=== PATIENT | male | born 1955 | race Caucasian/White ===

== ENCOUNTER 2016-08-16 18:25 | Inpatient (IN) | payer MEDICAID ==
[~2016-08-16 18:25] MED LIST: ALLERCLEAR10 MG PO; ANTIVERT25 MG PO; ATIVAN1 M1 PO; B-1100 MG PO; CAMPRAL333 MG PO; CATAFLAM50 MG; CLARITIN10 MG PO; DEPADE50 MG PO; DEPAKOTE D250 MG/TA1 PO; DEPAKOTE D250 MG/TAB PO; DEPAKOTE D500 MG/TA1 PO; DEPAKOTE ER250 M1 PO; DEPAKOTE500 MG; DESYREL150 MG PO; DIVALPROEX SOD250 M1 PO; DUONEB 2.5-0.5MG3 M1 AERO NEB; ENULOSE GT; FOLIC ACID1 MG PO; GABAPENTIN600 MG PO; HALOBETASOL PRO15 G1 TP; IBU-200200 MG; K-DUR10 MEQ PO; LEVOTHROID125 MCG PO; LEVOTHYROXINE125 MCG PO; LITHIUM CARBON300 MG PO; LORATADINE10 M1 PO; MIDODRINE HCL5 MG PO; MULTIVITAMIN W/1 TA PO; MULTIVITAMIN W1 EAC2 PO; MULTIVITAMIN1 TAB; NEURONTIN600 MG PO; NICODERM21 MG/PATC TD; OLANZAPINE15 MG PO; OLANZAPINE2.5 MG PO; OMEPRAZOLE20 M2 PO; PERMETHRIN60 GM TP; POTASSIUM CHLO10 MEQ PO; PREDNISONE20 MG; PROTONIX40 M1 PO; SERTRALINE HCL100 M1 PO; SERTRALINE HCL100 MG PO; SILVADENE20 GM TP; STRATTERA80 MG PO; THIAMINE HCL100 MG PO; TOVIAZ4 MG PO; TRAZODONE HCL150 MG; TRAZODONE HCL150 MG PO; TRAZODONE100 MG; TRAZODONE50 MG; TYLENOL650 MG PO; VIVITROL; ZOFRAN ODT4 MG/UDTAB PO; ZOLOFT100 MG; ZYPREXA7.5 MG PO; [UNRECOGNIZED DRUG - SUPPLY] TP
[2016-08-16 19:40] LABS: BASO % 0.1 % (0-2); EOS % 0.1 % (0-7); HCT-HEMATOCRIT 37.1 % (36.0-53.5); HGB-HEMOGLOBIN 12.6 gm/dl (13.5-17.0); IMMATURE GRANULOCYTES PERCENT 0.4 % (0-0.3); LYMPH % 5.3 % (20-45); LYMPH ABSOLUTE COUNT 1.2 tho/cmm (0.8-4.5); MCH (MEAN CORPUSCULAR HGB) 32.8 pg (28.0-32.0); MCV (MEAN CELL VOLUME) 96.6 fl (82.0-96.0); MEAN PLATELET VOLUME 11.3 cmc (9.4-12.4); MONO % 9.9 % (0-12); MONOCYTE ABSOLUTE COUNT 2.2 tho/cmm (0.0-1.2); NEUTROPHIL ABSOLUTE COUNT 18.9 tho/cmm (1.6-8.0); NEUTROPHIL-AUTOMATED 18.9 tho/cmm (1.6-8.0); NEUTROPHILS % 84.2 % (40-80); RED BLOOD COUNT 3.84 mil/cmm (4.40-5.70); RED CELL DISTRIBUTION WIDTH 13.7 % (12.4-16.4); WHITE BLOOD COUNT 22.5 tho/cmm (4.0-10.0)
[2016-08-16 19:57] LABS: ALCOHOL (ETOH) <10 mg/dl (<10); ANION GAP 14 mmol/L (0-20); BLOOD UREA NITROGEN 13 mg/dl (6-24); CALCIUM 8.9 mg/dl (8.5-10.5); CARBON DIOXIDE-VENOUS 22 mmol/L (22-32); CHLORIDE 106 mmol/l (96-110); CREATININE 0.79 mg/dl (0.60-1.30); GLUCOSE 102 mg/dL (70-110); SODIUM 136 mmol/L (135-145); eGFR VALUE FOR BLACK >90 mL/Min
[2016-08-16 19:59] LABS: POTASSIUM 5.8 mmol/L (3.7-5.1)
[2016-08-16] MEDS ORDERED: ULTRAM50 M1 PO (20:08)
[2016-08-16 20:09] LABS: URINE APPEARANCE HAZY; URINE BILIRUBIN SMALL (NEG); URINE BLOOD NEGATIVE (NEG); URINE COLOR DARK YELLOW; URINE GLUCOSE (UA) NEGATIVE (NEG); URINE KETONE MODERATE (NEG); URINE LEUKOCYTE ESTERASE POSITIVE (NEG); URINE NITRITE NEGATIVE (NEG); URINE PH 6.5 (5.0-8.0); URINE PROTEIN MODERATE (NEG)
[2016-08-16] MEDS ORDERED: MECLIZINE HCL25 M4 PO (20:09)
[2016-08-16] MEDS ORDERED: DEPAKOTE ER250 M1 PO (20:10)
[2016-08-16] MEDS ORDERED: WELLBUTRIN XL150 M1 PO (20:11)
[2016-08-16] MEDS ORDERED: OMEPRAZOLE40 M2 PO (20:12)
[2016-08-16] MEDS ORDERED: KEPPRA500 M3 PO (20:12)
[2016-08-16] MEDS ORDERED: POTASSIUM CHLO10 ME2 PO (20:12)
[2016-08-16] MEDS ORDERED: REXULTI1 MG PO (20:13)
[2016-08-16] MEDS ORDERED: FLUDROCORTISON0.1 M1 PO (20:13)
[2016-08-16] MEDS ORDERED: FOLIC ACID1 M1 PO (20:13)
[2016-08-16] MEDS ORDERED: MIDODRINE HCL5 M1 PO (20:13)
[2016-08-16] MEDS ORDERED: TRAZODONE HCL50 M1 PO (20:14)
[2016-08-16] MEDS ORDERED: VESICARE5 M1 PO (20:14)
[2016-08-16] MEDS ORDERED: MULTIVITAMINS1 EAC7 PO (20:14)
[2016-08-16] MEDS ORDERED: MIRTAZAPINE30 M2 PO (20:15)
[2016-08-16] MEDS ORDERED: NALTREXONE HCL50 MG PO (20:15)
[2016-08-16] MEDS ORDERED: VISTARIL25 M1 PO (20:16)
[2016-08-16 20:19] LABS: URINE EPITHELIAL CELLS 0 /[HPF] (0-10); URINE MUCUS 3+
[2016-08-16] MEDS ORDERED: OLANZAPINE2.5 M1 PO (20:24)
[2016-08-17 05:48] LABS: BASO % 0.2 % (0-2); BASO ABSOLUTE COUNT 0.1 tho/cmm (0.0-0.2); EOS % 0.3 % (0-7); EOSINOPHIL ABSOLUTE COUNT 0.1 tho/cmm (0.0-0.7); HCT-HEMATOCRIT 35.5 % (36.0-53.5); IMMATURE GRANULOCYTES ABSOLUTE 0.16 tho/cmm (0-0.03); IMMATURE GRANULOCYTES PERCENT 0.6 % (0-0.3); LYMPH % 3.8 % (20-45); MCH (MEAN CORPUSCULAR HGB) 32.3 pg (28.0-32.0); MCHC MEAN CORPUSCULAR HGB CONC 33.8 % (32.0-36.0); MCV (MEAN CELL VOLUME) 95.7 fl (82.0-96.0); MEAN PLATELET VOLUME 9.9 cmc (9.4-12.4); NEUTROPHIL ABSOLUTE COUNT 21.5 tho/cmm (1.6-8.0); NEUTROPHIL-AUTOMATED 21.5 tho/cmm (1.6-8.0); NEUTROPHILS % 80.1 % (40-80); RED BLOOD COUNT 3.71 mil/cmm (4.40-5.70); RED CELL DISTRIBUTION WIDTH 13.5 % (12.4-16.4); WHITE BLOOD COUNT 26.8 tho/cmm (4.0-10.0)
[2016-08-17 05:51] LABS: PLATELET COUNT 266 tho/cmm (150-450)
[2016-08-17 06:06] LABS: ALKALINE PHOSPHATASE 57 U/L (33-138); BILIRUBIN,TOTAL 0.4 mg/dl (0.0-1.5); BLOOD UREA NITROGEN 10 mg/dl (6-24); CALCIUM 7.8 mg/dl (8.5-10.5); CARBON DIOXIDE-VENOUS 21 mmol/L (22-32); CHLORIDE 108 mmol/l (96-110); CREATININE 0.84 mg/dl (0.60-1.30); GLUCOSE 81 mg/dL (70-110); PHOSPHOROUS 3.3 mg/dl (2.5-4.9); SODIUM 136 mmol/L (135-145); eGFR VALUE FOR BLACK >90 mL/Min
[2016-08-17 06:20] LABS: ALB/GLOB RATIO 0.2 (0.8-2.0); ALBUMIN 1.6 g/dl (3.5-5.0); ANION GAP 12 mmol/L (0-20)
[2016-08-17 06:21] LABS: ALT/SGPT 9 U/L (12-78); AST/SGOT 15 U/L (10-40); MAGNESIUM 1.9 mg/dl (1.8-2.6); POTASSIUM 4.9 mmol/L (3.7-5.1)
[2016-08-17 12:13] LABS: INR 1.5 INR (0.9-1.1); PROTHROMBIN TIME 17.5 SECONDS (9.0-13.6)
--- NOTE | 2016-08-17 19:25 | NUR ---
VIRTUAL CARE NOTE: ASSESSMENT DEFERRED. PT. SLEEPING.
[2016-08-18 03:45] LABS: ANION GAP 11 mmol/L (0-20); BLOOD UREA NITROGEN 9 mg/dl (6-24); C-REACTIVE PROTEIN 18.8 mg/dl (0-0.9); CALCIUM 8.3 mg/dl (8.5-10.5); CARBON DIOXIDE-VENOUS 24 mmol/L (22-32); CHLORIDE 101 mmol/l (96-110); CREATININE 0.78 mg/dl (0.60-1.30); GLUCOSE 87 mg/dL (70-110); SODIUM 132 mmol/L (135-145); eGFR VALUE FOR BLACK >90 mL/Min
[2016-08-18 03:46] LABS: POTASSIUM 3.8 mmol/L (3.7-5.1)
[2016-08-18 04:01] LABS: BASO % 0.1 % (0-2); EOS % 0.5 % (0-7); EOSINOPHIL ABSOLUTE COUNT 0.1 tho/cmm (0.0-0.7); HCT-HEMATOCRIT 34.7 % (36.0-53.5); HGB-HEMOGLOBIN 11.6 gm/dl (13.5-17.0); IMMATURE GRANULOCYTES ABSOLUTE 0.06 tho/cmm (0-0.03); IMMATURE GRANULOCYTES PERCENT 0.3 % (0-0.3); LYMPH ABSOLUTE COUNT 0.6 tho/cmm (0.8-4.5); MCH (MEAN CORPUSCULAR HGB) 32.2 pg (28.0-32.0); MCHC MEAN CORPUSCULAR HGB CONC 33.4 % (32.0-36.0); MCV (MEAN CELL VOLUME) 96.4 fl (82.0-96.0); MEAN PLATELET VOLUME 10.1 cmc (9.4-12.4); MONO % 12.7 % (0-12); MONOCYTE ABSOLUTE COUNT 2.4 tho/cmm (0.0-1.2); NEUTROPHIL ABSOLUTE COUNT 15.5 tho/cmm (1.6-8.0); NEUTROPHIL-AUTOMATED 15.5 tho/cmm (1.6-8.0); NEUTROPHILS % 83.4 % (40-80); PLATELET COUNT 264 tho/cmm (150-450); RED CELL DISTRIBUTION WIDTH 13.4 % (12.4-16.4); WHITE BLOOD COUNT 18.6 tho/cmm (4.0-10.0)
[2016-08-18 04:09] LABS: PROCALCITONIN 0.77 ng/ml (0.05-0.09)
[2016-08-18 14:38] LABS: BASO % 0.1 % (0-2); EOS % 0.2 % (0-7); EOSINOPHIL ABSOLUTE COUNT 0.1 tho/cmm (0.0-0.7); HCT-HEMATOCRIT 29.8 % (36.0-53.5); IMMATURE GRANULOCYTES PERCENT 0.7 % (0-0.3); LYMPH % 1.6 % (20-45); LYMPH ABSOLUTE COUNT 0.4 tho/cmm (0.8-4.5); MCH (MEAN CORPUSCULAR HGB) 31.7 pg (28.0-32.0); MCHC MEAN CORPUSCULAR HGB CONC 33.6 % (32.0-36.0); MCV (MEAN CELL VOLUME) 94.6 fl (82.0-96.0); MEAN PLATELET VOLUME 9.7 cmc (9.4-12.4); MONO % 6.9 % (0-12); MONOCYTE ABSOLUTE COUNT 1.9 tho/cmm (0.0-1.2); NEUTROPHIL ABSOLUTE COUNT 24.4 tho/cmm (1.6-8.0); NEUTROPHIL-AUTOMATED 24.4 tho/cmm (1.6-8.0); NEUTROPHILS % 90.5 % (40-80); PLATELET COUNT 362 tho/cmm (150-450); RED BLOOD COUNT 3.15 mil/cmm (4.40-5.70); RED CELL DISTRIBUTION WIDTH 13.5 % (12.4-16.4)
[2016-08-18 18:22] LABS: HCT-HEMATOCRIT 29.8 % (36.0-53.5); HGB-HEMOGLOBIN 10.2 gm/dl (13.5-17.0); RED CELL DISTRIBUTION WIDTH 13.2 % (12.4-16.4)
[2016-08-22 06:14] LABS: CREATININE 0.92 mg/dl (0.60-1.30); eGFR VALUE FOR BLACK >90 mL/Min
[2016-08-24 05:14] LABS: BASO % 0.3 % (0-2); BASO ABSOLUTE COUNT 0.1 tho/cmm (0.0-0.2); EOS % 2.6 % (0-7); EOSINOPHIL ABSOLUTE COUNT 0.4 tho/cmm (0.0-0.7); HCT-HEMATOCRIT 24.4 % (36.0-53.5); HGB-HEMOGLOBIN 8.2 gm/dl (13.5-17.0); IMMATURE GRANULOCYTES ABSOLUTE 0.28 tho/cmm (0-0.03); IMMATURE GRANULOCYTES PERCENT 1.7 % (0-0.3); LYMPH % 11.7 % (20-45); LYMPH ABSOLUTE COUNT 1.9 tho/cmm (0.8-4.5); MCH (MEAN CORPUSCULAR HGB) 31.4 pg (28.0-32.0); MCHC MEAN CORPUSCULAR HGB CONC 33.6 % (32.0-36.0); MCV (MEAN CELL VOLUME) 93.5 fl (82.0-96.0); MEAN PLATELET VOLUME 9.5 cmc (9.4-12.4); MONO % 13.8 % (0-12); MONOCYTE ABSOLUTE COUNT 2.2 tho/cmm (0.0-1.2); NEUTROPHIL ABSOLUTE COUNT 11.2 tho/cmm (1.6-8.0); NEUTROPHIL-AUTOMATED 11.2 tho/cmm (1.6-8.0); NEUTROPHILS % 69.9 % (40-80); PLATELET COUNT 438 tho/cmm (150-450); RED BLOOD COUNT 2.61 mil/cmm (4.40-5.70); RED CELL DISTRIBUTION WIDTH 13.9 % (12.4-16.4)
[2016-08-24 05:37] LABS: ANION GAP 10 mmol/L (0-20); BLOOD UREA NITROGEN 18 mg/dl (6-24); CALCIUM 8.4 mg/dl (8.5-10.5); CARBON DIOXIDE-VENOUS 28 mmol/L (22-32); CHLORIDE 105 mmol/l (96-110); CREATININE 1.16 mg/dl (0.60-1.30); GLUCOSE 80 mg/dL (70-110); POTASSIUM 3.4 mmol/L (3.7-5.1); SODIUM 140 mmol/L (135-145); eGFR VALUE FOR BLACK 80 mL/Min
[2016-08-24 22:35] LABS: URINE BILIRUBIN NEGATIVE (NEG); URINE BLOOD NEGATIVE (NEG); URINE GLUCOSE (UA) NEGATIVE (NEG); URINE KETONE NEGATIVE (NEG); URINE LEUKOCYTE ESTERASE NEGATIVE (NEG); URINE NITRITE NEGATIVE (NEG); URINE PROTEIN NEGATIVE (NEG); URINE SPECIFIC GRAVITY 1.005 (1.003-1.030)
[2016-08-24 22:44] LABS: URINE APPEARANCE Y; URINE COLOR PALE YELLOW
[2016-08-25 05:19] LABS: BASO % 0.5 % (0-2); BASO ABSOLUTE COUNT 0.1 tho/cmm (0.0-0.2); EOS % 2.8 % (0-7); EOSINOPHIL ABSOLUTE COUNT 0.5 tho/cmm (0.0-0.7); HCT-HEMATOCRIT 27.2 % (36.0-53.5); HGB-HEMOGLOBIN 9.1 gm/dl (13.5-17.0); IMMATURE GRANULOCYTES ABSOLUTE 0.38 tho/cmm (0-0.03); IMMATURE GRANULOCYTES PERCENT 2.2 % (0-0.3); LYMPH % 12.1 % (20-45); LYMPH ABSOLUTE COUNT 2.1 tho/cmm (0.8-4.5); MCH (MEAN CORPUSCULAR HGB) 30.7 pg (28.0-32.0); MCHC MEAN CORPUSCULAR HGB CONC 33.5 % (32.0-36.0); MCV (MEAN CELL VOLUME) 91.9 fl (82.0-96.0); MEAN PLATELET VOLUME 9.3 cmc (9.4-12.4); MONO % 12.6 % (0-12); MONOCYTE ABSOLUTE COUNT 2.2 tho/cmm (0.0-1.2); NEUTROPHILS % 69.8 % (40-80); PLATELET COUNT 437 tho/cmm (150-450); RED BLOOD COUNT 2.96 mil/cmm (4.40-5.70); RED CELL DISTRIBUTION WIDTH 15.5 % (12.4-16.4); WHITE BLOOD COUNT 17.2 tho/cmm (4.0-10.0)
[2016-08-25 05:35] LABS: ANION GAP 12 mmol/L (0-20); BLOOD UREA NITROGEN 17 mg/dl (6-24); CALCIUM 8.1 mg/dl (8.5-10.5); CARBON DIOXIDE-VENOUS 27 mmol/L (22-32); CHLORIDE 107 mmol/l (96-110); CREATININE 1.07 mg/dl (0.60-1.30); GLUCOSE 92 mg/dL (70-110); POTASSIUM 3.9 mmol/L (3.7-5.1); SODIUM 142 mmol/L (135-145); eGFR VALUE FOR BLACK 88 mL/Min
[2016-08-26 05:41] LABS: BASO % 0.4 % (0-2); BASO ABSOLUTE COUNT 0.1 tho/cmm (0.0-0.2); EOS % 2.5 % (0-7); EOSINOPHIL ABSOLUTE COUNT 0.4 tho/cmm (0.0-0.7); HCT-HEMATOCRIT 26.7 % (36.0-53.5); HGB-HEMOGLOBIN 9.2 gm/dl (13.5-17.0); IMMATURE GRANULOCYTES ABSOLUTE 0.26 tho/cmm (0-0.03); IMMATURE GRANULOCYTES PERCENT 1.5 % (0-0.3); LYMPH % 10.8 % (20-45); LYMPH ABSOLUTE COUNT 1.9 tho/cmm (0.8-4.5); MCH (MEAN CORPUSCULAR HGB) 31.8 pg (28.0-32.0); MCHC MEAN CORPUSCULAR HGB CONC 34.5 % (32.0-36.0); MCV (MEAN CELL VOLUME) 92.4 fl (82.0-96.0); MEAN PLATELET VOLUME 9.3 cmc (9.4-12.4); MONO % 11.3 % (0-12); MONOCYTE ABSOLUTE COUNT 1.9 tho/cmm (0.0-1.2); NEUTROPHIL ABSOLUTE COUNT 12.6 tho/cmm (1.6-8.0); NEUTROPHIL-AUTOMATED 12.6 tho/cmm (1.6-8.0); NEUTROPHILS % 73.5 % (40-80); PLATELET COUNT 474 tho/cmm (150-450); RED BLOOD COUNT 2.89 mil/cmm (4.40-5.70); RED CELL DISTRIBUTION WIDTH 15.5 % (12.4-16.4); WHITE BLOOD COUNT 17.1 tho/cmm (4.0-10.0)
[2016-08-26 09:35] LABS: ABG CO2 ARTERIAL 27 mmol/L (21-27); ARTERIAL BLD GAS O2 SATURATION 92 % (95-98); ARTERIAL BLOOD GAS PCO2 37 mmHg (32-45); ARTERIAL PO2 65 mmHg (70-100); BICARBONATE 26 mmol/L (21-28); BLOOD GAS BASE EXCESS 2 mM/L (-/+3); PH 7.46 Units (7.35-7.45)
[2016-08-27] MEDS ORDERED: VANCOMYCIN HCL500 MG PR (22:02)
[2016-08-27] MEDS ORDERED: NORCO 5-325 TA1 EACH PO (22:10)
[2016-08-27] MEDS ORDERED: MIRALAX17 G2 PO (22:11)
[2016-08-27] MEDS ORDERED: ZOFRAN4 M2 PO (22:12)
[2016-08-28 05:55] LABS: BASO % 0.4 % (0-2); BASO ABSOLUTE COUNT 0.1 tho/cmm (0.0-0.2); EOS % 1.8 % (0-7); EOSINOPHIL ABSOLUTE COUNT 0.4 tho/cmm (0.0-0.7); HCT-HEMATOCRIT 26.2 % (36.0-53.5); HGB-HEMOGLOBIN 8.8 gm/dl (13.5-17.0); IMMATURE GRANULOCYTES ABSOLUTE 0.15 tho/cmm (0-0.03); IMMATURE GRANULOCYTES PERCENT 0.7 % (0-0.3); LYMPH % 7.3 % (20-45); LYMPH ABSOLUTE COUNT 1.7 tho/cmm (0.8-4.5); MCH (MEAN CORPUSCULAR HGB) 30.2 pg (28.0-32.0); MCHC MEAN CORPUSCULAR HGB CONC 33.6 % (32.0-36.0); MEAN PLATELET VOLUME 9.4 cmc (9.4-12.4); MONO % 8.6 % (0-12); NEUTROPHIL ABSOLUTE COUNT 18.5 tho/cmm (1.6-8.0); NEUTROPHIL-AUTOMATED 18.5 tho/cmm (1.6-8.0); NEUTROPHILS % 81.2 % (40-80); PLATELET COUNT 500 tho/cmm (150-450); RED BLOOD COUNT 2.91 mil/cmm (4.40-5.70); RED CELL DISTRIBUTION WIDTH 14.9 % (12.4-16.4); WHITE BLOOD COUNT 22.8 tho/cmm (4.0-10.0)
[2016-08-28 06:07] LABS: CREATININE 1.12 mg/dl (0.60-1.30); eGFR VALUE FOR BLACK 83 mL/Min
[2016-12-02] MEDS ORDERED: ROBAFEN DM CGH118 ML PO (22:51)
[2016-12-02] MEDS ORDERED: SALINE NASAL M126 ML (22:51)
[2016-12-02] MEDS ORDERED: XALATAN2.5 M1 EACH EYE (23:01)
== END 2016-08-28 12:00 | DRG 163 ==
LOC: EDMED 18:25 → EMR2 20:43 → 5WD 21:37 → PACU 08-18 14:05 → CCU 08-18 15:03 → PCUB 08-20 10:47
PROVIDERS: Family Medicine; Internal Medicine; Internal Medicine Pulmonary Disease; Nurse Practitioner; Nurse Practitioner Family; Registered Nurse; Surgery; ADMIT Internal Medicine
PROC: 0BDN4ZZ Extraction of Right Pleura, Percutaneous Endoscopic Approach (ICD-10-PCS; principal; 2016-08-16)
PROC: 05HC33Z Insertion of Infusion Device into Left Basilic Vein, Percutaneous Approach (ICD-10-PCS; 2016-08-16)
DX: J44.0 Chronic obstructive pulmonary disease with (acute) lower respiratory infection (principal); J18.9 Pneumonia, unspecified organism; J86.9 Pyothorax without fistula; K75.0 Abscess of liver; K65.9 Peritonitis, unspecified; L02.211 Cutaneous abscess of abdominal wall; J90 Pleural effusion, not elsewhere classified; E46 Unspecified protein-calorie malnutrition; K21.9 Gastro-esophageal reflux disease without esophagitis; I73.9 Peripheral vascular disease, unspecified; G40.909 Epilepsy, unspecified, not intractable, without status epilepticus; E03.9 Hypothyroidism, unspecified; F10.10 Alcohol abuse, uncomplicated; F31.9 Bipolar disorder, unspecified; D63.8 Anemia in other chronic diseases classified elsewhere; E88.09 Other disorders of plasma-protein metabolism, not elsewhere classified; G31.9 Degenerative disease of nervous system, unspecified
CPT/HCPCS: C1751; C9113; G0480; G8978-GP-CJ; G8979-GP-CI; J1650; J2250; J2405; J2543; J3010; J3260; J3370; J7030; P9016; Q9967